=== PATIENT | female | born 1950 | race Caucasian/White ===

== ENCOUNTER 2017-01-13 15:28 | Emergency (ER) | payer MEDICARE ==
[~2017-01-13] VITALS: Ht 157.5 cm; Wt 64.0 kg
[2017-01-13 16:00] VITALS: BP 167/74; PULSE 73; RESP 16; TEMP 98.9; O2SAT 99
[2017-01-13 16:08] LABS: BLOOD, URINE LARGE (NEG); GLUCOSE,URINE NEG (NEG); KETONE, URINE NEG (NEG); NITRITE,URINE NEG (NEG)
[2017-01-13 16:15] LABS: COMMENT (UR) CULTURE INDICATED; CULTURE IF INDICATED CULTURE INDICATED; RBC, URINE INNUM /hpf (0-3); SQUAMOUS EPITHELIAL CELL URINE 0-5 /hpf (0-5); URINE COLOR YELLOW (YELLW/STRAW)
[2017-01-13] MEDS ORDERED: METO25TA3 PO (16:31)
[2017-01-13] MEDS ORDERED: LEVO100T5 PO (16:31)
[2017-01-13] MEDS ORDERED: TH S8.6T PO (16:31)
[2017-01-13] MEDS ORDERED: ASCO100016 PO (16:31)
[2017-01-13] MEDS ORDERED: PEPC20TA11 PO (16:31)
[2017-01-13] MEDS ORDERED: DENO120P SQ (16:31)
[2017-01-13] MEDS ORDERED: FURO20TA PO (16:31)
[2017-01-13] MEDS ORDERED: FERR325C PO (16:31)
[2017-01-13] MEDS ORDERED: POTA-163 PO (16:31)
[2017-01-13] MEDS ORDERED: SERT-132 PO (16:31)
[2017-01-13] MEDS ORDERED: PEMB1SOL IV PUSH (16:31)
[2017-01-13] MEDS ORDERED: ALPR0.5T3 PO (16:31)
[2017-01-13] MEDS ORDERED: MULT1TAB46 PO (16:31)
[2017-01-13] MEDS ORDERED: BACT800T5 PO (16:35)
[2017-01-13] MEDS ORDERED: PHEN0.4T PO (16:35)
--- NOTE | 2017-01-13 16:36 | PD ---
HPI Chief Complaint: Complaint Time Seen by Provider: 16:29 Travel History International Travel<30 days: No Contact w/Intl Traveler<30days: No Traveled to known affect area: No History of Present Illness HPI This 66-year-old female said she had some burning with urination yesterday. This has continued. She noticed some blood in her urine today. She has had one urinary tract infection past. She has discomfort when she. She is not aware of fever or chills. She has a history of stage IV lung cancer. She is currently being treated with K Truda. She goes for regular scans of her chest and abdomen and is due for one on the of this month. She is treated at the cancer center in [facility] Past Medical History Cancer: Yes (lung) Diminished Hearing: No Respiratory: Yes (lung ca stage 4) Tetanus Vaccination: Unknown Influenza Vaccination: Yes ?: Not Tubal Ligation: Yes Past Surgical History Tonsillectomy: Yes Social History Alcohol Use: Yes (soc) Tobacco Use: No Substance Use: No Allergies-Medications (Allergen,Severity, Reaction): Coded Allergies: erythromycin base (Verified Allergy, Intermediate, hives, 01/13/17) Review of Systems General / Constitutional: No: Fever, Chills Eyes: No: Diploplia, Blurred Vision HENT: No: Headaches, Vertigo Cardiovascular: No: Chest Pain or Discomfort Respiratory: No: Cough, Shortness of Breath Gastrointestinal: No: Vomiting, Diarrhea Genitourinary: Positive: Dysuria, Hematuria Musculoskeletal: No: Myalgias Hematologic/Lymphatic: No: Easy Bruising Physical Exam Narrative GENERAL: Well-developed female SKIN: Focused skin assessment warm/dry. HEENT pigmentation apparently due to HEAD: Atraumatic. Normocephalic. EYES: Pupils equal and round. No scleral icterus. No injection or drainage. ENT: No nasal bleeding or discharge. Mucous membranes pink and moist. NECK: Trachea midline. No JVD. CARDIOVASCULAR: Regular rate and rhythm. No murmur appreciated. RESPIRATORY: No accessory muscle use. Clear to auscultation. Breath sounds equal bilaterally. GASTROINTESTINAL: Abdomen soft, non-tender, nondistended. Hepatic and splenic margins not palpable. No CVA tenderness MUSCULOSKELETAL: No obvious deformities. No clubbing. No cyanosis. No edema. NEUROLOGICAL: Awake and alert. No obvious cranial nerve deficits. Motor grossly within normal limits. Normal speech. PSYCHIATRIC: Appropriate mood and affect; insight and judgment normal. Data Data Last Documented VS Vital Signs Date Time Temp Pulse Resp B/P Pulse Ox O2 Delivery O2 Flow Rate FiO2 01/13/17 16:13 16 01/13/17 16:00 98.9 73 167/74 99 Orders Urinalysis - C+S If Indicated (01/13/17 15:51) Urine Culture (01/13/17 15:55) Labs Laboratory Tests Test 01/13/17 15:55 Urine Color YELLOW Urine Turbidity CLOUDY Urine pH 7.0 Urine Specific [place] 1.016 Urine Protein 100 mg/dL Urine Glucose (UA) NEG mg/dL Urine Ketones NEG mg/dL Urine Occult Blood LARGE Urine Nitrite NEG Urine Bilirubin NEG Urine Leukocyte Esterase MOD Urine RBC INNUM /hpf Urine WBC 25-49 /hpf Urine Squamous Epithelial 0-5 /hpf Cells Microscopic Urinalysis Comment CULTURE INDICATED MDM Medical Decision Making Medical Screen Exam Complete: Yes Emergency Medical Condition: Yes Medical Record Reviewed: Yes Differential Diagnosis Differential includes UTI, renal colic, metastatic lung cancer Narrative Course Urine shows 25-50 white cells and innumerable red cells. This may be due to urinary tract infection though other etiologies cannot be ruled out. At this time she is stable without pain and vomiting and I will put her on Bactrim. She will follow up with her medical doctors. Diagnosis Primary Impression: Urinary tract infection Qualified Code: N30.01 - Acute cystitis with hematuria Scripts Phenazopyridine (Pyridium)100 Mg Umt812 Mg PO Q8H PRN (DYSURIA) #10 TAB Ref 0 Prov:Too Dennis MD 01/13/17 Sulfamethoxazole-Trimethoprim (Bactrim DS)800-160 Mg Tab1 Tab PO BID #14 TAB Ref 0 Prov:Too Dennis MD 01/13/17 Disposition: DISCHARGE HOME Condition: Stable Too Dennis MD Jan 13, 2017 16:36
== END 2017-01-13 17:27 | disposition home or self-care (01) ==
LOC: PHED 15:28
DX: N30.01 Acute cystitis with hematuria (principal); B96.89 Other specified bacterial agents as the cause of diseases classified elsewhere
CPT/HCPCS: 81001; 87086; 99284